=== PATIENT | female | born 1990 | race Caucasian/White ===

== ENCOUNTER 2020-11-24 07:02 | Emergency (ER) | payer MEDICAID ==
[~2020-11-24] VITALS: Ht 170.2 cm; Wt 80.0 kg
[2020-11-24] MEDS ORDERED: IBUPROFEN 400MG TABLET PO ONE (08:30)
[2020-11-24 08:51] VITALS: BP 110/68
[2020-11-24] MEDS ORDERED: IBUP-2028 MT (09:25)
== END 2020-11-24 09:48 | disposition home or self-care (01) ==
LOC: ER 07:02
DX: T19.2XXA Foreign body in vulva and vagina, initial encounter (principal); X58.XXXA Exposure to other specified factors, initial encounter; Y93.89 Activity, other specified; Y92.013 Bedroom of single-family (private) house as the place of occurrence of the external cause
CPT/HCPCS: 81025; 99284